=== PATIENT | female | born 1975 | race American Indian/Alaskan Native ===

== ENCOUNTER 2018-12-05 15:11 | Emergency (ER) | payer MEDICAID ==
--- NOTE | 2018-12-05 15:43 | EDM.PDOC ---
ED HPI GENERAL MEDICAL PROBLEM - General Chief Complaint: Skin Complaint Stated Complaint: LEG HURT/HIVES Time Seen by Provider: 12/05/18 15:43 Source of Information: Reports: Patient, RN, RN Notes Reviewed History Limitations: Reports: No Limitations - History of Present Illness INITIAL COMMENTS - FREE TEXT/NARRATIVE: Patient presents to the ER with complaint of multiple red spots over the body. Patient states she started noticing small red bumps develop yesterday.patient states the spots have been itchy. 1 area on the right lower anterior gonzalez appears to be reddened and swollen and very painful to touch. Patient states she has been staying at a friend's home. Patient denies fever chills, N/V/D. Patient states the first week in November she fell cutting the top of her right foot, she states she did have it x-rayed, was told no fractures. Patient states foot continues to hurt with ambulation, moving further up into the ankle. Patient appears anxious. Onset: Gradual Duration: Constant, Getting Worse Location: Reports: Generalized - Related Data Allergies Allergy/AdvReac Type Severity Reaction Status Date / Time lactose Allergy Diarrhea Verified 12/05/18 15:41 Home Meds: Home Meds . [No Known Home Meds] 12/05/18 [History] Social & Family History - Tobacco Use Smoking Status *Q: Current Every Day Smoker Years of Tobacco use: 20 Packs/Tins Daily: 0.3 - Recreational Drug Use Recreational Drug Use: No ED ROS GENERAL - Review of Systems Review Of Systems: ROS reveals no pertinent complaints other than HPI. ED EXAM, SKIN/RASH Exam: Not Obtained Exam Limited By: No Limitations General Appearance: Alert, WD/WN, Anxious, Mild Distress Eye Exam: Bilateral Eye: EOMI, Normal Inspection Ears: Normal External Exam, Hearing Grossly Normal Nose: Normal Inspection Throat/Mouth: Normal Inspection, Normal Voice, No Airway Compromise Head: Atraumatic, Normocephalic Neck: Normal Inspection, Supple, Non-Tender, Full Range of Motion Respiratory/Chest: No Respiratory Distress, Lungs Clear, Normal Breath Sounds, No Accessory Muscle Use, Chest Non-Tender Cardiovascular: Normal Peripheral Pulses, Regular Rate, Rhythm, No Edema, No Gallop, No JVD, No Murmur, No Rub Peripheral Pulses: 1+: Dorsalis Pedis (L), Dorsalis Pedis (R), 2+: Radial (L), Radial (R) GI/Abdominal: Normal Bowel Sounds, Soft, Non-Tender, No Organomegaly, No Distention, No Abnormal Bruit, No Mass (Female) Exam: Deferred Rectal (Female) Exam: Deferred Back Exam: Normal Inspection, Full Range of Motion, NT Extremities: Normal Inspection, Normal Range of Motion, Non-Tender, No Pedal Edema, Normal Capillary Refill Neurological: Alert, Oriented, CN II-XII Intact, Normal Cognition, Normal Gait, Normal Reflexes, No Motor/Sensory Deficits Psychiatric: Normal Affect, Normal Mood Skin: Other (bite-like lesions generalized all over the body, back of neck, hairline, upper and lower extremities. Areas are erythematous and itchy. Some areas larger, more swollen, then others. Area to the right anterior gonzalez is erythematous and edematous, indurated, and itchy.) Location, Skin: Lower Extremity, Right, Generalized Associated features: Warmth, Tenderness, Swelling, Induration, Inflammation Lymphatic: No Adenopathy Course - Vital Signs Last Recorded V/S: Last Vital Signs Temp 97.7 F 12/05/18 15:37 Pulse 97 12/05/18 15:37 Resp 16 12/05/18 15:37 BP 159/96 H 12/05/18 15:37 Pulse Ox 100 12/05/18 15:37 - Orders/Labs/Meds Orders: Active Orders 24 hr Category Date Time Status Foot Comp Min 3V Rt [CR] Urgent Exams 12/05/18 15:53 Taken Labs: Laboratory Tests 12/05/18 12/05/18 Range/Units 16:17 16:17 WBC 8.9 (5.0-10.0) 10^3/uL RBC 4.48 (4.2-5.4) 10^6/uL Hgb 12.3 (12.0-16.0) g/dL Hct 36.9 L (37.0-47.0) % MCV 82.4 (80-100) fL MCH 27.5 (27.0-34.0) pg MCHC 33.3 (33.0-35.0) g/dL Plt Count 242 (150-450) 10^3/uL Neut % (Auto) 76.8 H (42.2-75.2) % Lymph % (Auto) 14.8 L (20.5-50.1) % [place] % (Auto) 7.6 (2-8) % Eos % (Auto) 0.6 L (1.0-3.0) % Baso % (Auto) 0.2 (0.0-1.0) % Sodium 137 (135-145) mmol/L Potassium 3.3 L (3.6-5.0) mmol/L Chloride 104 (101-111) mmol/L Carbon Dioxide 27.0 (21.0-31.0) mmol/L Anion Gap 9.3 BUN 9 (7-18) mg/dL Creatinine 0.7 (0.6-1.3) mg/dL Est Cr Clr Drug Dosing 95.01 mL/min Estimated GFR (MDRD) > 60 BUN/Creatinine Ratio 12.85 Glucose 83 (74-105) mg/dL Calcium 8.4 (8.4-10.2) mg/dl Total Bilirubin 0.7 (0.2-1.0) mg/dL AST 16 (10-42) IU/L ALT 15 (10-60) IU/L Alkaline Phosphatase 45 (42-121) IU/L Total Protein 7.3 (6.7-8.2) g/dl Albumin 3.9 (3.2-5.5) g/dl Globulin 3.4 Albumin/Globulin Ratio 1.15 Meds: Medications Discontinued Medications Generic Name Dose Route Start Last Admin Trade Name Freq PRN Reason Stop Dose Admin Cephalexin Confirm 12/05/18 17:02 12/05/18 17:08 Keflex Administered 12/05/18 17:03 Not Given Dose 1,000 mg .ROUTE .STK-MED ONE - Radiology Interpretation Free Text/Narrative:: Right foot xray: FINDINGS: Bones/joints: Normal. Soft tissues: Normal. IMPRESSION: No acute findings. Thank you for allowing us to participate in the care of your patient. Dictated and Authenticated by: Carl Joe MD 12/05/2018 4:25 PM Central Time ([place] & [place]) See rad report Departure - Departure Time of Disposition: 16:50 Disposition: Home, Self-Care 01 Condition: Fair Clinical Impression: Cellulitis Qualifiers: Site of cellulitis: extremity Site of cellulitis of extremity: lower extremity Laterality: right Qualified Code(s): L03.115 - Cellulitis of right lower limb Bug bites Qualifiers: Encounter type: initial encounter Qualified Code(s): W57.XXXA - Bitten or stung by nonvenomous insect and other nonvenomous arthropods, initial encounter - Discharge Information *PRESCRIPTION DRUG MONITORING PROGRAM REVIEWED*: No *COPY OF PRESCRIPTION DRUG MONITORING REPORT IN PATIENT CRISTIN: No Instructions: Bedbugs, [id number], Cellulitis, Adult, [id number] Forms: ED Department Discharge Additional Instructions: Wash bedding you are sleeping in and clean mattress RX: Cephalexin 500mg orally twice daily for 10 days May use over the counter Calamine lotion or Benadryl cream May use over the counter benadryl Follow up with your primary care facility - My Orders Last 24 Hours: My Active Orders 12/05/18 15:53 Foot Comp Min 3V Rt [CR] Urgent - Assessment/Plan Last 24 Hours: My Active Orders 12/05/18 15:53 Foot Comp Min 3V Rt [CR] Urgent
[2018-12-05 16:41] LABS: ANION GAP 9.3; CHLORIDE,CL 104 mmol/L (101-111); SODIUM,NA 137 mmol/L (135-145)
[2018-12-05] MEDS ORDERED: Cephalexin 500 MG Cap ONE (17:02)
== END 2018-12-05 17:09 | disposition home or self-care (01) ==
LOC: DL.ED 15:11
DX: L03.115 Cellulitis of right lower limb (principal); F17.210 Nicotine dependence, cigarettes, uncomplicated; Z91.011 Allergy to milk products; W57.XXXA Bitten or stung by nonvenomous insect and other nonvenomous arthropods, initial encounter
CPT/HCPCS: 36415; 73630-RT; 80053; 85025; 99284-25